=== PATIENT | male | born 1975 | race Caucasian/White ===

== ENCOUNTER 2020-05-23 11:57 | Emergency (ER) | payer MEDICARE, MEDICAID ==
[~2020-05-23] VITALS: Ht 175.3 cm; Wt 126.0 kg
[2020-05-23 12:00] VITALS: BP 177/107
[2020-05-23] MEDS ORDERED: PRED10TA PO (12:48)
[2020-05-23] MEDS ORDERED: predniSONE 20 mg tablet PO ONE (12:50)
== END 2020-05-23 13:01 | disposition home or self-care (01) ==
LOC: ER 11:59
DX: L23.9 Allergic contact dermatitis, unspecified cause (principal); I10 Essential (primary) hypertension
CPT/HCPCS: 99283; J7512

== ENCOUNTER 2024-02-24 10:19 | Outpatient (CLI) | payer MEDICARE, MEDICAID ==
[~2024-02-24 10:19] MED LIST: ASPI-611 PO; ATOR10TA70 PO; HYDR25CA PO; LEVO200T8 PO; MELO-102 PO; METF-438 PO; NORCO PO; PREG150C PO; RISP0.5T74 PO; RIZA-5 SL; TRAZ-256 PO
== END 2024-02-24 23:59 | disposition home or self-care (01) ==
LOC: MRI 10:19
PROVIDERS: ATTEND Anesthesiology Pain Medicine
DX: M43.26 Fusion of spine, lumbar region (principal); N28.1 Cyst of kidney, acquired; M54.16 Radiculopathy, lumbar region; M54.12 Radiculopathy, cervical region; M54.50 Low back pain, unspecified; M54.2 Cervicalgia; E11.9 Type 2 diabetes mellitus without complications; Z98.890 Other specified postprocedural states
CPT/HCPCS: 72148

== ENCOUNTER 2024-12-23 12:56 | Emergency (ER) | payer MEDICARE, MEDICAID ==
[~2024-12-23] VITALS: Ht 175.3 cm; Wt 122.7 kg
[2024-12-23 13:08] VITALS: TEMP 97.8
[2024-12-23 13:35] LABS: BASOPHILS # (AUTO) 0.1 X10'3 (0-0.2); BASOPHILS % (AUTO) 1.3 % (0-1); EOSINOPHILS # (AUTO) 0.1 X10'3 (0-0.9); EOSINOPHILS % (AUTO) 1.9 % (0-6); HEMATOCRIT 51.4 % (42.0-52.0); HEMOGLOBIN 17.8 g/dl (14.0-17.9); LYMPHOCYTES # (AUTO) 2.6 X10'3 (1.1-4.8); LYMPHOCYTES % (AUTO) 36.9 % (21-51); MEAN CORPUSCULAR HEMOGLOBIN 33.8 PG (27.0-31.0); MEAN CORPUSCULAR HGB CONC 34.6 g/dL (33.0-36.5); MEAN CORPUSCULAR VOLUME 97.9 FL (78-98); MEAN PLATELET VOLUME 8.7 FL (7.4-10.4); MONOCYTES # (AUTO) 0.4 X10'3 (0-0.9); MONOCYTES % (AUTO) 6.2 % (2-12); NEUTROPHILS # (AUTO) 3.8 X10'3 (1.8-7.7); NEUTROPHILS % (AUTO) 53.7 % (42-75); PLATELET COUNT 159 X10'3 (140-440); RED BLOOD COUNT 5.25 X10'6 (4.70-6.10); WHITE BLOOD COUNT 7.2 X10'3 (4.5-11.0)
[2024-12-23 13:41] LABS: ALANINE AMINOTRANSFERASE 103 U/L (12-78); ALBUMIN 3.9 G/DL (3.4-5.0); ALKALINE PHOSPHATASE 91 IU/L (46-116); ANION GAP 6 (8-16); ASPARTATE AMINO TRANSFERASE 82 U/L (10-37); BILIRUBIN,TOTAL 0.9 MG/DL (0.1-1.0); BLOOD UREA NITROGEN 7 MG/DL (7-18); BUN/CREATININE RATIO 6.8 (10.0-20.0); CHLORIDE 105 MMOL/L (99-107); CREATININE 1.03 MG/DL (0.60-1.10); GLUCOSE 84 MG/DL (70-104); LIPASE 83 U/L (16-77); POTASSIUM 3.8 MMOL/L (3.5-5.1); SODIUM 139 MMOL/L (135-145); TOTAL CARBON DIOXIDE 28.2 MMOL/L (24-32); TOTAL PROTEIN 7.7 G/DL (6.4-8.2); eCRCL 85 ML/MIN; eGFR 76 ML/MIN
[2024-12-23] MEDS ORDERED: iohexol 300mg/ml 100ml inj. ONE (15:30)
--- NOTE | 2024-12-23 15:30 | Physician Documentation ---
History of Present Illness Chief Complaint: Abdominal Pain Stated Complaint: CHEST/ABD PAIN Time Seen by MD: 14:32 OK to notify your PCP?: Yes Primary Medical Doctor: DAVID ECHEVARRIA Source: patient Mode of Arrival: POV Exam Limitations: no limitations HPI This is a 49-year-old male who comes in complaining of two days of right lower quadrant abdominal pain. The patient was states he has had associated diarrhea and chest pain. He denies cardiac history. States the pain stays in the right lower quadrant without obvious alleviating exacerbating factors. He denies fevers or chills. He has had nausea without vomiting. Medication Reconciliation Allergies: Coded Allergies: semaglutide (Unverified Allergy, Intermediate, N/V, 12/23/24) Uncoded Allergies: DARVOCET (Allergy, Unknown, stomach upset, 05/23/20) Scheduled Aspirin (Aspir 81), 1 TAB PO DAILY, (Reported) Atorvastatin Calcium (Atorvastatin Calcium), PO DAILY, (Reported) Hydroxyzine Pamoate (Vistaril), 1 CAP PO HS, (Reported) Levothyroxine Sodium (Levothyroxine Sodium), 1 TAB PO DAILY, (Reported) Meloxicam (Meloxicam), 1 TAB PO DAILY, (Reported) Metformin HCl (Metformin HCl), 1 TAB PO Q12H, (Reported) Pregabalin (Lyrica), 1 CAP PO DAILY, (Reported) Risperidone (Risperdal), 0.5 MG PO DAILY, (Reported) Trazodone HCl (Trazodone HCl), 2 TAB PO HS, (Reported) Scheduled PRN [[place]], 10 MG PO Q4H PRN for pain, (Reported) Miscellaneous Medications Rizatriptan Benzoate (Maxalt), 10 MG SL, (Reported) Physical Exam Vital Signs: Temperature: 97.8, Source: Temporal, Heart Rate: 77, Respiratory Rate: 18, BP: 153/94, Pulse Oximetry: 96, Weight: 122.730 Pulse Oximetry Reflects: adequate oxygenation General Appearance: alert, WD/WN, moderate distress (The patient appears uncomfortable in his guarding his right lower quadrant of the abdomen.) EENT: PERRL/EOMI Neck: normal inspection, full range of motion, supple, non-tender Respiratory No accessory muscle use or retractions. Lungs are clear to auscultation all treadwell. Cardiovascular No rubs, gallops or murmurs. No peripheral edema, cyanosis or clubbing of the extremities. Gastrointestinal To inspection of the abdomen of the patient was obese but no obvious distention. There is tenderness to palpation of the right lower quadrant of the abdomen as well as McBurney's point. No rigidity rebound or guarding x4 quadrants. Negative psoas, obturator, or Rovsing signs. Negative Whitlock's sign. Skin: normal color, warm/dry Progress Results/Orders Reviewed/noted all lab results: Yes Results/Orders Vital Signs 12/23/24 12/23/24 13:08 14:30 Temp 97.8 Pulse 77 Resp 18 B/P (MAP) 153/94 Pulse Ox 96 Laboratory Tests Test 12/23/24 13:16 White Blood Count 7.2 Red Blood Count 5.25 Hemoglobin 17.8 Hematocrit 51.4 Mean Corpuscular Volume 97.9 Mean Corpuscular Hemoglobin 33.8 H Mean Corpuscular Hemoglobin Concent 34.6 Red Cell Distribution Width 15.0 H Platelet Count 159 Mean Platelet Volume 8.7 Neutrophils (%) (Auto) 53.7 Lymphocytes (%) (Auto) 36.9 Monocytes (%) (Auto) 6.2 Eosinophils (%) (Auto) 1.9 Basophils (%) (Auto) 1.3 H Neutrophils # (Auto) 3.8 Lymphocytes # (Auto) 2.6 Monocytes # (Auto) 0.4 Eosinophils # (Auto) 0.1 Basophils # (Auto) 0.1 CBC Comment Sodium Level 139 Potassium Level 3.8 Chloride Level 105 Carbon Dioxide Level 28.2 Anion Gap 6 L Blood Urea Nitrogen 7 Creatinine 1.03 Estimated GFR/1.73 m2 76 BUN/Creatinine Ratio 6.8 L Glucose Level 84 Calcium Level 9.0 Total Bilirubin 0.9 Aspartate Amino Transf (AST/SGOT) 82 H Alanine Aminotransferase (ALT/SGPT) 103 H Alkaline Phosphatase 91 Total Protein 7.7 Albumin 3.9 Globulin 3.8 Albumin/Globulin Ratio 1.0 L Lipase 83 H Chemistry Comments EKG/XRAY/CT/US/VASC/MRI EKG : Intepreting Monitor?: No Additional Comment 12 lead EKGs and hurt about me: Sinus bradycardia rate of 59. RSR in V1 or V2 right feces D or RVH. Nonspecific T-wave abnormalities anterior leads. Prolonged QT interval. Medical Decision Making Findings The patient was workup showed only gastritis no other concerning findings. At this point I addressed the gastritis but giving the patient a GI cocktail, famotidine 20 mg IV, Bentyl and Lomotil for his diarrhea. The patient does admit to eating spicy [place] food last night prior to this episode of abdominal pain. After receiving all medications he says he feels much better. I am going to discharge the patient home with a prescription for Prilosec, Bentyl and Lomotil. Instructed him to start a clear liquid supplement diet and to follow up with the primary care physician for recheck in the next one or two days. Return to the ER for any worsening or concerning symptoms. Additional Comments Nonspecific abdominal pain. Gastritis. Gastroenteritis. Colitis. Appendicitis. Departure Disposition: HOME / SELF CARE / HOMELESS Impression: Primary Impression: Gastritis and duodenitis Condition: Stable Discharge Instructions: Gastritis, Adult Additional Instructions: Take the medications as prescribed start a clear liquid soft bland diet. Follow up with your primary care physician for recheck in the next one or two days. Return to the ER for any worsening or concerning symptoms Referrals: NO PRIMARY CARE PROVIDER (PCP) Prescriptions Omeprazole (Prilosec) 40 Mg Capsule 1 CAP PO DAILY for 30 Days, #30 CAP Prov: BRUNILDA REY 12/23/24 Diphenoxylate HCl/Atropine (Lomotil 2.5-0.025 mg Tablet) 2.5 Mg-0.025 Mg Tablet 1 TAB PO Q6H for Abdominal cramping diarrhea for 5 Days, #20 TAB 0 Refills Prov: BRUNILDA REY 12/23/24 Dicyclomine Hcl* (Bentyl*) 10 Mg Capsule 1 CAP PO Q6H PRN for ABDOMINAL PAIN, #30 CAP Prov: BRUNILDA REY 12/23/24 Signature Scribe Signature: No Scribe Attestation: The note accurately reflects work and decisions made by me.Brunilda VOGT 12/23/24 19:00 BRUNILDA REY Dec 23, 2024 15:30
[2024-12-23] MEDS: normal saline 1000ml 1,000 ML IV ONE (15:59)
[2024-12-23] MEDS: ondansetron/PF 4mg/2ml inj IV ONE (15:59)
[2024-12-23] MEDS: HYDROmorphone 1 mg/ml syringe IV ONE (16:00)
--- NOTE | 2024-12-23 16:47 | RADIOLOGY REPORT ---
EXAM: CT Abdomen and Pelvis With Intravenous Contrast CLINICAL INDICATION: Right lower quadrant abdominal pain TECHNIQUE: Axial computed tomography images of the abdomen and pelvis with intravenous contrast. Th is CT exam was performed using one or more of the following dose reduction techniques: automated exp osure control, adjustment of the mA and/or kV according to patient size, and/or use of iterative john nstruction technique. CONTRAST: COMPARISON: None FINDINGS: LUNG BASES: Unremarkable. No mass. No consolidation. MEDIASTINUM: Small esophageal hiatal hernia. ABDOMEN: LIVER: Hepatomegaly with fatty infiltration. GALLBLADDER AND BILE DUCTS: Unremarkable. No calcified stones. No ductal dilation. PANCREAS: Unremarkable. No mass. No ductal dilation. SPLEEN: Unremarkable. No splenomegaly. ADRENALS: Unremarkable. No mass. KIDNEYS AND URETERS: Bilateral renal cysts. No hydronephrosis. STOMACH AND BOWEL: Apparent wall thickening of the gastric antrum or proximal duodenum to be second janusz to gastritis or duodenitis. Clinical correlation is recommended. No obstruction. PELVIS: APPENDIX: No findings to suggest acute appendicitis. BLADDER: Unremarkable. No mass. REPRODUCTIVE: Unremarkable as visualized. ABDOMEN and PELVIS: INTRAPERITONEAL SPACE: Unremarkable. No free air. No significant fluid collection. BONES/JOINTS: No acute fracture. No dislocation. SOFT TISSUES: Umbilical hernia containing fat. Bilateral inguinal hernias. VASCULATURE: Unremarkable. No abdominal aortic aneurysm. LYMPH NODES: Unremarkable. No enlarged lymph nodes. OTHER FINDINGS: . . Status post posterior fusion of L5-S1 with disc spacers. Intact hardware. . . . IMPRESSION: 1. Apparent wall thickening of the gastric antrum or proximal duodenum to be secondary to gastritis or duodenitis. Clinical correlation is recommended. 2. Small esophageal hiatal hernia. 3. Hepatomegaly with fatty infiltration. 4. Umbilical hernia containing fat. 5. Bilateral inguinal hernias.
[2024-12-23] MEDS ORDERED: diphenoxylate/atropine tablet (Lomotil) PO ONE (17:30)
--- NOTE | 2024-12-23 17:34 | ELECTROCARDIOGRAPH REPORT ---
[facility] Test Date: 2024-12-23 Test Time: 17:32:09 Pat Name: PILY GUTHRIE Department: EMERGENCY ROOM [id number] Room: Gender: M Client Advisor: BHANU : 1975 Requested By: BRUNILDA REY Order Number: [id number] Reading MD: Dr. Bravo Presley Measurements Intervals Icard Rate: 59 P: 0 [place]: 128 QRS: 50 QRSD: 87 T: 0 QT: 535 QTc: 531 Interpretive Statements Sinus bradycardia RSR' in V1 or V2, right VCD or RVH Nonspecific T abnrm, anterolateral leads Prolonged QT interval Electronically Signed On 12-23-2024 19:01:[address] Bravo Presley Please click the below link to view image of tracing.
[2024-12-23] MEDS: famotidine/PF 10 mg/ml inj IV ONE (18:07)
[2024-12-23] MEDS: dicyclomine 10 MG capsule PO ONE (18:09)
[2024-12-23] MEDS: LIDOcaine 2% Viscous 15ml cup MM ONE (18:10)
[2024-12-23] MEDS: mag hydrox/Alum hydrox/simeth 30ml oral suspension PO ONE (18:10)
[2024-12-23] MEDS: diphenoxylate/atropine tablet (Lomotil) PO ONE (18:33)
[2024-12-23 18:54] LABS: BILIRUBIN,URINE NEGATIVE (Neg); CLARITY,URINE CLEAR (Clear); COLOR,URINE YELLOW (Yellow); GLUCOSE, URINE >=1000 mg/dl (Neg); KETONES,URINE NEGATIVE (Neg); LEUKOCYTE ESTERASE ,URINE NEGATIVE (Neg); NITRITES, URINE NEGATIVE (Neg); OCCULT BLOOD,URINE NEGATIVE (Neg); PROTEIN,URINE NEGATIVE (Neg)
[2024-12-23] MEDS ORDERED: DICY10CA88 PO (18:59)
[2024-12-23 19:00] LABS: UA COLLECTION TYPE CLN CATCH MIDSTREAM
[2024-12-23] MEDS ORDERED: OMEP40CA21 PO (19:00)
[2024-12-23] MEDS ORDERED: DIPH-186 PO (19:00)
[2024-12-23 19:03] LABS: WBC,URINE 0-4 /HPF (0-4)
[2024-12-23 19:04] LABS: BACTERIA,URINE NONE SEEN /HPF (Neg); RBC,URINE NONE SEEN /HPF (0-2)
[2024-12-23 19:05] LABS: AMORPHOUS PHOSPHATES 1+; SQUAMOUS EPITHELIAL CELL,UR FEW /LPF (FEW)
[2024-12-23 19:18] VITALS: BP 118/64; PULSE 60; RESP 16; O2SAT 98
== END 2024-12-23 19:21 | disposition home or self-care (01) ==
LOC: ER 12:56
DX: K29.70 Gastritis, unspecified, without bleeding (principal); K29.80 Duodenitis without bleeding; Z88.8 Allergy status to other drugs, medicaments and biological substances; Z79.82 Long term (current) use of aspirin
CPT/HCPCS: 36415; 74177; 80053; 81001; 83690; 85025; 93005; 96361; 96374; 96375; 99285; J1171; J2405; J3490; J7030; Q9967

== ENCOUNTER 2025-02-13 17:30 | Emergency (ER) | payer MEDICARE, MEDICAID ==
[~2025-02-13] VITALS: Ht 175.3 cm; Wt 129.0 kg
[~2025-02-13 17:30] MED LIST changes: +DIPH-186 PO
[2025-02-13 17:32] VITALS: TEMP 98.5
[2025-02-13 18:27] LABS: HEMATOCRIT 49.2 % (42.0-52.0); MEAN CORPUSCULAR VOLUME 97.1 FL (78-98); RED BLOOD COUNT 5.07 X10'6 (4.70-6.10); WHITE BLOOD COUNT 6.4 X10'3 (4.5-11.0)
[2025-02-13 18:28] LABS: BASOPHILS % (AUTO) 0.5 % (0-1); EOSINOPHILS % (AUTO) 0.8 % (0-6); LYMPHOCYTES % (AUTO) 15.6 % (21-51); MEAN CORPUSCULAR HEMOGLOBIN 33.6 PG (27.0-31.0); MEAN CORPUSCULAR HGB CONC 34.6 g/dL (33.0-36.5); MEAN PLATELET VOLUME 8.6 FL (7.4-10.4); MONOCYTES # (AUTO) 0.3 X10'3 (0-0.9); MONOCYTES % (AUTO) 4.6 % (2-12); NEUTROPHILS % (AUTO) 78.5 % (42-75); PLATELET COUNT 136 X10'3 (140-440); RED CELL DISTRIBUTION WIDTH 15.1 % (11.5-14.5)
[2025-02-13 18:53] LABS: ALANINE AMINOTRANSFERASE 102 U/L (12-78); ALBUMIN 3.6 G/DL (3.4-5.0); ALKALINE PHOSPHATASE 108 IU/L (46-116); ANION GAP 8 (8-16); ASPARTATE AMINO TRANSFERASE 91 U/L (10-37); BILIRUBIN,TOTAL 1.2 MG/DL (0.1-1.0); BLOOD UREA NITROGEN 5 MG/DL (7-18); BUN/CREATININE RATIO 5.2 (10.0-20.0); CALCIUM 8.8 MG/DL (8.5-10.1); CHLORIDE 104 MMOL/L (99-107); CREATININE 0.96 MG/DL (0.60-1.10); GLUCOSE 152 MG/DL (70-104); LIPASE 63 U/L (16-77); POTASSIUM 3.9 MMOL/L (3.5-5.1); SODIUM 139 MMOL/L (135-145); TOTAL CARBON DIOXIDE 27.4 MMOL/L (24-32); TOTAL PROTEIN 7.3 G/DL (6.4-8.2); eCRCL 91 ML/MIN; eGFR 83 ML/MIN
[2025-02-13] MEDS: ondansetron/PF 4mg/2ml inj IV STA (19:54)
[2025-02-13] MEDS: ketorolac trometh 30MG/ML vial 30 MG/ML VIAL IV STA (19:56)
[2025-02-13] MEDS: acetaminophen 1,000mg/100ml IV 100 ML IV STA (19:56)
[2025-02-13] MEDS ORDERED: iohexol 300mg/ml 100ml inj. ONE (20:12)
[2025-02-13 20:16] LABS: BILIRUBIN,URINE NEGATIVE (Neg); CLARITY,URINE CLEAR (Clear); COLOR,URINE YELLOW (Yellow); GLUCOSE, URINE NEGATIVE (Neg); KETONES,URINE NEGATIVE (Neg); LEUKOCYTE ESTERASE ,URINE NEGATIVE (Neg); NITRITES, URINE NEGATIVE (Neg); OCCULT BLOOD,URINE NEGATIVE (Neg); PROTEIN,URINE TRACE mg/dl (Neg)
[2025-02-13 20:20] LABS: UA COLLECTION TYPE NON-SPECIFIED
[2025-02-13 20:21] LABS: WBC,URINE 0-4 /HPF (0-4)
[2025-02-13 20:22] LABS: BACTERIA,URINE NONE SEEN /HPF (Neg); MUCUS STRANDS NONE SEEN /LPF (Neg); RBC,URINE 0-2 /HPF (0-2); SQUAMOUS EPITHELIAL CELL,UR FEW /LPF (FEW)
--- NOTE | 2025-02-13 20:50 | RADIOLOGY REPORT ---
Exam: CT CT ABDOMEN PELVIS W/ IV CONTRAST History: abd pain Comparison Study: CT CT ABDOMEN PELVIS W/ IV CONTRAST on DOS: 12/23/24 TECHNIQUE: A digital cake icer image was obtained. During the uneventful, intravenous administration of c ontrast material, multislice data acquisition was obtained through the abdomen and pelvis. The data s et was subsequently reconstructed into multiplanar reformats. RADIATION DOSE: DLP 36.5 mGy.cm; CTDI vol 2029.8 mGy. Findings: Liver: Hepatomegaly. Spleen: Mild splenomegaly measuring up to 14.2 cm. Pancreas: Unremarkable. Gallbladder: Unremarkable. Adrenals: Unremarkable Kidneys: Bilateral renal cysts and additional too small to characterize lesions. Pelvic Viscera: Unremarkable. Vasculature: Unremarkable. Retroperitoneum: Absent Bowel: No bowel obstruction. The appendix is normal. Moderate fat containing umbilical hernia. Musculoskeletal: Unremarkable. Soft tissues: Postsurgical changes are present at L5-S1. Lungs: The lung bases are clear. Impression: No acute abdominopelvic abnormality identified. Incidental findings as detailed.
[2025-02-13] MEDS: proCHLORperazine 10 MG/2 ml inj IV STA (21:46)
[2025-02-13] MEDS: morphine 4 MG/ML inj SYRINge IV STA (21:46)
[2025-02-13] MEDS: loperamide 2mg capsule PO STA (21:47)
[2025-02-13] MEDS: normal saline 1000ml 1,000 ML IV STA (21:47)
[2025-02-13 22:03] VITALS: BP 108/66; PULSE 87; RESP 18; O2SAT 99
--- NOTE | 2025-02-13 22:29 | Physician Documentation ---
History of Present Illness Chief Complaint: Abdominal Pain Stated Complaint: ABD PAIN Time Seen by MD: 18:55 Primary Medical Doctor: DAVID ECHEVARRIA Mode of Arrival: Ambulatory HPI Patient is seen today with complaints of abdominal pain from his umbilical hernia. Patient also states he has had nausea and vomiting and diarrhea for three days and has not been able to hold anything solid down for two days. Patient states he did have a loose bowel movement just an hour ago. Patient states he feels dehydrated and is requesting morphine for pain. Patient states he normally gets morphine for his pain. Patient denies any chest pain or shortness of breath. He has no other concern or complaint at this time. He denies any fevers or chills. Upon further questioning Patient states he actually has had multiple sick contacts of family members after meeting on father's day about four days ago that multiple family members have had nausea vomiting and diarrhea. Medication Reconciliation Allergies: Coded Allergies: semaglutide (Unverified Allergy, Intermediate, N/V, 12/23/24) Uncoded Allergies: DARVOCET (Allergy, Unknown, stomach upset, 05/23/20) Scheduled Aspirin (Aspir 81), 1 TAB PO DAILY, (Reported) Atorvastatin Calcium (Atorvastatin Calcium), PO DAILY, (Reported) Diphenoxylate HCl/Atropine (Lomotil 2.5-0.025 mg Tablet), 1 TAB PO Q6H Hydroxyzine Pamoate (Vistaril), 1 CAP PO HS, (Reported) Levothyroxine Sodium (Levothyroxine Sodium), 1 TAB PO DAILY, (Reported) Meloxicam (Meloxicam), 1 TAB PO DAILY, (Reported) Metformin HCl (Metformin HCl), 1 TAB PO Q12H, (Reported) Pregabalin (Lyrica), 1 CAP PO DAILY, (Reported) Risperidone (Risperdal), 0.5 MG PO DAILY, (Reported) Trazodone HCl (Trazodone HCl), 2 TAB PO HS, (Reported) Scheduled PRN [[place]], 10 MG PO Q4H PRN for pain, (Reported) Miscellaneous Medications Rizatriptan Benzoate (Maxalt), 10 MG SL, (Reported) Review of Systems Constitutional: Denies: chills, fever, weakness Eyes: Denies: pain, blurred vision ENT: Denies: ear pain, nose pain, throat pain, mouth pain Respiratory: Denies: cough, shortness of breath Cardiovascular: Denies: chest pain, palpitations Gastrointestinal: Denies: abdominal pain, nausea, vomiting Genitourinary: Denies: burning, dysuria Male Genitalia: Denies: penile discharge, testicular pain Neurological: Denies: headache, dizziness Musculoskeletal: Denies: pain, swelling Integumentary: Denies: rash, lesions Allergic/Immunologic: Denies: hives, itching Hematologic/Lymphatic: Denies: no symptoms reported Psychiatric: Denies: depression, anxiety Physical Exam Vital Signs: Temperature: 98.5, Source: Temporal, Heart Rate: 87, Respiratory Rate: 18, BP: 108/66, Pulse Oximetry: 99, Weight: 129.000 Oxygen Flow Rate: 0 Physical Exam General: Awake and Alert, no acute distress. HEENT: Conjunctiva pink, Sclera clear, Mucus Membranes moist. Neck: Supple without masses and tenderness. Resp: Unlabored. Lungs clear to auscultation bilaterally. Heart: Regular Rate and rhythm, normal S1 and S2 without murmur, rub or gallop. Abdomen: Patient on exam does have small umbilical hernia. Patient has significant tenderness to palpation of the abdomen which seems generalized. I do not appreciate any rebound tenderness. Patient does appear to have guarding of the abdomen. Abdomen is soft and nondistended. Normoactive bowel sounds present In all four quadrants. Extremities: No cyanosis,clubbing or edema. Skin: Warm and Dry. Progress Results/Orders Results/Orders Orders - REBEKAH MARSHALL PAC Saline Lock (02/13/25 ) Ondansetron Inj. (Zofran 4mg/2ml Vial) (02/13/25 19:44) Ct Abdomen Pelvis (02/13/25 20:00) Normal Saline 1000ml (Sodium Chloride 10 (02/13/25 21:31) Completed Orders - REBEKAH MARSHALL PAC Ketorolac Trometh 30mg/Ml Vial (Toradol (02/13/25 19:44) Acetaminophen 1,000mg/100ml Iv (Ofirmev (02/13/25 19:44) Ct Abdomen Pelvis (02/13/25 20:00) Procalcitonin (02/13/25 19:49) Lacticsepsis (02/13/25 19:49) Iohexol 300mg/Ml 100ml Inj. (Omnipaque-3 (02/13/25 20:12) Morphine 4mg/Ml Inj. (Morphine Inj.) (02/13/25 21:31) Prochlorperazine Inj (Compazine Inj) (02/13/25 21:31) Loperamide Capsule (Imodium Capsule) (02/13/25 21:33) Medications Received in ER Medications (Trade) Dose Ordered Sig/Dane Route PRN Reason Start Time Stop Time Status Last Admin Dose Admin (Toradol inj. 30mg/ml) 30 mg ONCE STAT IV 02/13/25 19:44 02/13/25 19:51 DC 02/13/25 19:56 30 MG Acetaminophen 100 ml @ 400 mls/hr ONCE STAT IV 02/13/25 19:44 02/13/25 19:58 DC 02/13/25 19:56 400 MLS/HR (Zofran 4mg/2ml vial) 8 mg ONCE STAT IV 02/13/25 19:44 02/13/25 19:51 DC 02/13/25 19:54 8 MG (morphine inj.) 4 mg ONCE STAT IV 02/13/25 21:31 02/13/25 21:33 DC 02/13/25 21:46 4 MG (Compazine inj) 10 mg ONCE STAT IV 02/13/25 21:31 02/13/25 21:34 DC 02/13/25 21:46 10 MG Sodium Chloride 1,000 ml @ 1,000 mls/hr ONCE STAT IV 02/13/25 21:31 02/13/25 22:30 02/13/25 21:47 1,000 MLS/HR (Imodium capsule) 4 mg ONCE STAT PO 02/13/25 21:33 02/13/25 21:34 DC 02/13/25 21:47 4 MG Vital Signs 02/13/25 02/13/25 02/13/25 02/13/25 17:32 18:30 19:56 20:06 Temp 98.5 Pulse 96 84 Resp 16 16 14 18 B/P (MAP) 152/96 136/77 (96) Pulse Ox 96 97 O2 Flow Rate 0 0 02/13/25 02/13/25 02/13/25 20:35 21:46 22:03 Pulse 87 Resp 16 16 18 B/P (MAP) 108/66 (80) Pulse Ox 99 Laboratory Tests Test 02/13/25 17:37 02/13/25 18:10 02/13/25 19:57 02/13/25 20:02 Glucometer 164 H White Blood Count 6.4 Red Blood Count 5.07 Hemoglobin 17.0 Hematocrit 49.2 Mean Corpuscular Volume 97.1 Mean Corpuscular Hemoglobin 33.6 H Mean Corpuscular Hemoglobin Concent 34.6 Red Cell Distribution Width 15.1 H Platelet Count 136 L Mean Platelet Volume 8.6 Neutrophils (%) (Auto) 78.5 H Lymphocytes (%) (Auto) 15.6 L Monocytes (%) (Auto) 4.6 Eosinophils (%) (Auto) 0.8 Basophils (%) (Auto) 0.5 Neutrophils # (Auto) 5.0 Lymphocytes # (Auto) 1.0 L Monocytes # (Auto) 0.3 Eosinophils # (Auto) 0.0 Basophils # (Auto) 0.0 CBC Comment Sodium Level 139 Potassium Level 3.9 Chloride Level 104 Carbon Dioxide Level 27.4 Anion Gap 8 Blood Urea Nitrogen 5 L Creatinine 0.96 Estimated GFR/1.73 m2 83 BUN/Creatinine Ratio 5.2 L Glucose Level 152 H Calcium Level 8.8 Total Bilirubin 1.2 H Aspartate Amino Transf (AST/SGOT) 91 H Alanine Aminotransferase (ALT/SGPT) 102 H Alkaline Phosphatase 108 Total Protein 7.3 Albumin 3.6 Globulin 3.7 Albumin/Globulin Ratio 1.0 L Lipase 63 Procalcitonin 0.06 Chemistry Comments Lactic Acid Level 1.9 Urine Specimen Description Non-specified Urine Color Yellow Urine Clarity Clear Urine pH 8.0 Urine Specific [place] 1.015 Urine Protein Trace Urine Glucose (UA) Negative Urine Ketones Negative Urine Occult Blood Negative Urine Nitrite Negative Urine Bilirubin Negative Urine Urobilinogen 2.0 H Urine Leukocyte Esterase Negative Urine RBC 0-2 Urine WBC 0-4 Urine Squamous Epithelial Cells Few Urine Bacteria None seen Urine Mucus None seen Urine Culture Indicated Not ind Volume Urine Centrifuged 10 ml Urine Comment EKG/XRAY/CT/US/VASC/MRI CT : Impression CAT SCAN Patient: PILY GUTHRIE Medical Record: [id number] [facility] : 1975, Age: 49 Sex: Male Location: ER Patient Status: [facility] ER Service Date/Time: 02/13/251999 Ordering Physician: REBEKAH MARSHALL PAC Exam: CT ABDOMEN PELVIS Exam: CT CT ABDOMEN PELVIS W/ IV CONTRAST History: abd pain Comparison Study: CT CT ABDOMEN PELVIS W/ IV CONTRAST on DOS: 12/23/24 TECHNIQUE: A digital external grinder tool image was obtained. During the uneventful, intravenous administration of contrast material, multislice data acquisition was obtained through the abdomen and pelvis. The data set was subsequently reconstructed into multiplanar reformats. RADIATION DOSE: DLP 36.5 mGy.cm; CTDI vol 2029.8 mGy. Findings: Liver: Hepatomegaly. Spleen: Mild splenomegaly measuring up to 14.2 cm. Pancreas: Unremarkable. Gallbladder: Unremarkable. Adrenals: Unremarkable Kidneys: Bilateral renal cysts and additional too small to characterize lesions. Pelvic Viscera: Unremarkable. Vasculature: Unremarkable. Retroperitoneum: Absent Bowel: No bowel obstruction. The appendix is normal. Moderate fat containing umbilical hernia. Musculoskeletal: Unremarkable. Soft tissues: Postsurgical changes are present at L5-S1. Lungs: The lung bases are clear. Impression: No acute abdominopelvic abnormality identified. Incidental findings as detailed. Electronically Signed by:FILEMON MOON MD Date & Time: 02/13/252046 Dictated by: FILEMON MOON MD Dictation date and time: 02/13/252046 Primary Care Provider: NO PRIMARY CARE PROVIDER cc: REBEKAH MARSHALL PAC ~ Medical Decision Making Findings Patient is seen today with complaints of abdominal pain from his umbilical hernia. Patient also states he has had nausea and vomiting and diarrhea for three days and has not been able to hold anything solid down for two days. Patient states he did have a loose bowel movement just an hour ago. Patient states he feels dehydrated and is requesting morphine for pain. Patient states he normally gets morphine for his pain. Patient denies any chest pain or shortness of breath. He has no other concern or complaint at this time. He denies any fevers or chills. Upon further questioning Patient states he actually has had multiple sick contacts of family members after meeting on father's day about four days ago that multiple family members have had nausea vomiting and diarrhea. CT scan of abdomen showed no acute findings. There was seen a small fat containing umbilical hernia. Patient was treated with 8 mg of Zofran IV, Toradol 30 mg IV, Tylenol a 1000 mg IV, patient reported improvement in nausea but states he still feels nauseous and reported only slight improvement in his pain. Patient was given morphine 4 mg IV and Compazine 10 mg IV as well as loperamide 4 mg by mouth. Patient declined admission today and will follow up with primary care in 1-5 days if no better as needed sooner. Patient was also given L of fluid. Patient will return to ED with any worsening, concerning or changing symptoms. Departure Disposition: LEFT AGAINST MEDICAL ADVICE Impression: Primary Impression: Abdominal pain Qualified Codes: R10.84 - Generalized abdominal pain Additional Impression: Umbilical hernia Qualified Codes: K42.9 - Umbilical hernia without obstruction or gangrene Condition: Improved Discharge Instructions: Abdominal Pain (Nonspecific) Additional Instructions: CT scan of abdomen showed no acute findings. There was seen a small fat containing umbilical hernia. Patient was treated with 8 mg of Zofran IV, Em dol 30 mg IV, Tylenol a 1000 mg IV, patient reported improvement in nausea but states he still feels nauseous and reported only slight improvement in his pain. Patient was given morphine 4 mg IV and Compazine 10 mg IV as well as loperamide 4 mg by mouth. Patient declined admission today and will follow up with primary care in 1-5 days if no better as needed sooner. Patient was also given L of fluid. Patient will return to ED with any worsening, concerning or changing symptoms. Referrals: NO PRIMARY CARE PROVIDER (PCP) Prescriptions Loperamide Hcl (Loperamide) 2 Mg Capsule 2 CAP PO Q6H for loose stool for 2 Days, #16 CAP 0 Refills Prov: REBEKAH MARSHALL PAC 02/13/25 ONDANSETRON ODT 4mg tablet (ONDANSETRON ODT) 4 Mg Tab.rapdis 4 MG PO BID for 7 Days, #14 TAB Prov: REBEKAH MARSHALL PAC 02/13/25 Signature Scribe Signature: No scribe Attestation: No scribREBEKAH Stearns PAC Feb 13, 2025 22:29
[2025-02-13] MEDS ORDERED: ONDA-243 PO (22:59)
[2025-02-13] MEDS ORDERED: LOPE2CAP PO (22:59)
== END 2025-02-13 23:00 | disposition left against medical advice (07) ==
LOC: ER 17:31
DX: K42.9 Umbilical hernia without obstruction or gangrene (principal); Z88.8 Allergy status to other drugs, medicaments and biological substances; Z79.82 Long term (current) use of aspirin
CPT/HCPCS: 36415; 74177; 80053; 81001; 82948; 83605; 83690; 84145; 85025; 96361; 96374; 96375; 99285; J0131; J0780; J1885; J2270; J2405; J7030; Q9967

== ENCOUNTER 2025-08-08 15:55 | Emergency (ER) | payer MEDICARE, MEDICAID ==
[~2025-08-08] VITALS: Ht 175.3 cm; Wt 123.6 kg
[~2025-08-08 15:55] MED LIST changes: +LOPE2CAP PO; +ONDA-243 PO
[2025-08-08 16:52] LABS: MEAN PLATELET VOLUME 8.9 FL (7.4-10.4); RED CELL DISTRIBUTION WIDTH 15.1 % (11.5-14.5)
[2025-08-08 17:07] LABS: CREATININE 1.00 MG/DL (0.60-1.10); TOTAL CARBON DIOXIDE 23.3 MMOL/L (24-32); eCRCL 87 ML/MIN; eGFR 79 ML/MIN
--- NOTE | 2025-08-08 19:50 | Physician Documentation ---
History of Present Illness Chief Complaint: Abdominal Pain w/vomiting Stated Complaint: VOMITING/DIZZINESS/ABD PAIN Time Seen by MD: 19:42 Primary Medical Doctor: DAVID ECHEVARRIA HPI 49-year-old male presents to the ED for complaint of increased abdominal pain and vomiting. Patient is a known diabetic and states he can not hold any food down. Takes glipizide metformin and Jardiance. Says he has a davis take his medications because he throws them up. He has been going on for the last week with increasing severity. States he has a abdominal pain in the upper left quadrant and midepigastric region that does not radiate. Denies any fevers. States he has stopped drinking alcohol four months ago Day of Onset: Aug 08, 2025 Medication Reconciliation Allergies: Coded Allergies: semaglutide (Unverified Allergy, Intermediate, N/V, 08/08/25) Uncoded Allergies: DARVOCET (Allergy, Unknown, stomach upset, 05/23/20) Scheduled Aspirin (Aspir 81), 1 TAB PO DAILY, (Reported) Atorvastatin Calcium (Atorvastatin Calcium), PO DAILY, (Reported) Diphenoxylate HCl/Atropine (Lomotil 2.5-0.025 mg Tablet), 1 TAB PO Q6H Hydroxyzine Pamoate (Vistaril), 1 CAP PO HS, (Reported) Levothyroxine Sodium (Levothyroxine Sodium), 1 TAB PO DAILY, (Reported) Loperamide Hcl (Loperamide), 2 CAP PO Q6H Meloxicam (Meloxicam), 1 TAB PO DAILY, (Reported) Metformin HCl (Metformin HCl), 1 TAB PO Q12H, (Reported) ONDANSETRON ODT 4mg tablet (Ondansetron Odt), 4 MG PO BID Pregabalin (Lyrica), 1 CAP PO DAILY, (Reported) Risperidone (Risperdal), 0.5 MG PO DAILY, (Reported) Trazodone HCl (Trazodone HCl), 2 TAB PO HS, (Reported) Scheduled PRN [[place]], 10 MG PO Q4H PRN for pain, (Reported) Miscellaneous Medications Rizatriptan Benzoate (Maxalt), 10 MG SL, (Reported) Review of Systems All Other Systems at this time: Reviewed and Negative ROS As stated above in the HPI, otherwise all systems are reviewed and negative. Physical Exam Vital Signs: Temperature: 98.9, Source: Temporal, Heart Rate: 89, Respiratory Rate: 16, BP: 123/75, Pulse Oximetry: 95, Weight: 123.640 Oxygen Flow Rate: 0 Physical Exam General: Alert, no apparent distress. Respiratory: Lungs clear, no respiratory distress. Cardiovascular: Regular rate and rhythm, no murmurs. Gastrointestinal: Soft, nontender, nondistended. Bowels sounds present. enlarged abdomen Neurologic: Oriented x4. Psychiatric: Normal mood and affect. Skin: Normal color, warm and dry. No edema, no ecchymosis. Progress Results/Orders Results/Orders Vital Signs 08/08/25 08/08/25 16:18 17:20 Temp 98.9 Pulse 90 89 Resp 16 B/P (MAP) 123/69 123/75 (91) Pulse Ox 95 95 O2 Flow Rate 0 0 Laboratory Tests Test 08/08/25 16:34 White Blood Count 6.6 Red Blood Count 4.94 Hemoglobin 16.5 Hematocrit 48.7 Mean Corpuscular Volume 98.6 H Mean Corpuscular Hemoglobin 33.3 H Mean Corpuscular Hemoglobin Concent 33.8 Red Cell Distribution Width 15.1 H Platelet Count 119 L Mean Platelet Volume 8.9 Neutrophils (%) (Auto) 82.1 H Lymphocytes (%) (Auto) 14.7 L Monocytes (%) (Auto) 2.4 Eosinophils (%) (Auto) 0.4 Basophils (%) (Auto) 0.4 Neutrophils # (Auto) 5.4 Lymphocytes # (Auto) 1.0 L Monocytes # (Auto) 0.2 Eosinophils # (Auto) 0.0 Basophils # (Auto) 0.0 CBC Comment Sodium Level 136 Potassium Level 3.7 Chloride Level 105 Carbon Dioxide Level 23.3 L Anion Gap 8 Blood Urea Nitrogen 8 Creatinine 1.00 Estimated GFR/1.73 m2 79 BUN/Creatinine Ratio 8.0 L Glucose Level 253 H Calcium Level 8.3 L Total Bilirubin 1.3 H Aspartate Amino Transf (AST/SGOT) 72 H Alanine Aminotransferase (ALT/SGPT) 75 Alkaline Phosphatase 96 Total Protein 6.9 Albumin 3.2 L Globulin 3.7 Albumin/Globulin Ratio 0.9 L Lipase 120 H Chemistry Comments Medical Decision Making Additional information obtaine: old records Findings 59-year-old male he is adamant that he quit drinking three months ago. His laboratory values and CT findings indicate that he may have residual pathology from chronic alcohol use. Lipase well below a concerning value. He indicated that he does have some hepatosplenomegaly. At this time I do not see any reason to pursue further emergent evaluation. Symptoms have somewhat subsided. has some residual nausea Differential Dx:Considerations: Cholelithasis, Constipation, Pancreatitis, Urinary tract infection, Urolithiasis Departure Disposition: HOME / SELF CARE / HOMELESS Impression: Primary Impression: Abdominal pain Additional Impression: Gastritis and duodenitis Discharge Instructions: Abdominal Pain (Nonspecific) Referrals: NO PRIMARY CARE PROVIDER (PCP) Prescriptions ONDANSETRON ODT 4mg tablet (ONDANSETRON ODT) 4 Mg Tab.rapdis 1 TAB PO Q6H PRN PRN for nausea/vomiting for 4 Days, #16 TAB 0 Refills Prov: KD DAUGHERTY LIBRARIAN HEAD 08/08/25 Signature Scribe Signature: h Attestation: Scribed for Kd Daugherty Saw Feeder by Kd Daugherty - JOSE . 08/08/25 21:28 KD DAUGHERTY LIBRARIAN HEAD Aug 08, 2025 19:50
[2025-08-08] MEDS ORDERED: iohexol 300mg/ml 100ml inj. ONE (19:56)
[2025-08-08] MEDS: normal saline 1000ML IV soln IVB ONE (20:26)
[2025-08-08] MEDS: ondansetron/PF 4mg/2ml inj IV ONE (20:27)
[2025-08-08] MEDS: morphine 4 MG/ML inj SYRINge IV ONE (20:27)
--- NOTE | 2025-08-08 20:51 | RADIOLOGY REPORT ---
COMPUTERIZED TOMOGRAPHY ABDOMEN AND PELVIS WITH CONTRAST REASON FOR EXAM: Right upper quadrant abdominal pain. COMPARISON: CT CT ABDOMEN PELVIS W/ IV CONTRAST on DOS: 02/13/25, CT CT ABDOMEN PELVIS W/ IV CONTRAST on DOS: 12/23/24 TECHNIQUE: The exam was performed on a Multidetector scanner. Spiral scans were acquired from the diaphragm to the symphysis pubis after administration of IV contrast. 2-D coronal and sagittal reformatted images were provided. Radiation optimization: All CT scans at this facility use at least one of these dose optimization techniques: Automated exposure control mA and/or kV adjustment per patient size (includes targeted exams where dose is matched to clinical indication) or iterative reconstruction. CONTRAST ADMINISTRATION: 100 mL omnipaque 300 intravenously RADIATION DOSE: CTDI: 36 mGy DLP: 2075 mGy-cm FINDINGS: The visualized lung bases are grossly clear. There is no pleural effusion. There is no pericardial effusion. The spleen is borderline enlarged at 13.2 cm in length.. The liver is borderline enlarged at 18.0 cm in length. No focal hepatic lesion is identified. The portal vein is patent. No calcified gallstone is identified. There is no pericholecystic edema. The pancreas is grossly unremarkable. The adrenal glands appear normal. The kidneys enhance symmetrically. There are several simple renal cysts in both kidneys which require no dedicated follow-up. There is no hydronephrosis of either kidney. There is no abdominal aortic aneurysm. There is a retroaortic left renal vein. No pathologic lymphadenopathy is identified by size criteria. There is no pathologic distention of the small bowel. The urinary bladder is within normal limits. The prostate and seminal vesicles are within normal limits. The colonic stool burden is small. The appendix is normal. No free fluid is identified in the abdomen or pelvis. No acute osseous abnormality is identified. There is surgical fusion of L5 and S1 with an intervertebral disc spacer. IMPRESSION: Borderline hepatosplenomegaly. No gallstone identified. No pericholecystic edema. No evidence of bowel obstruction. Normal appendix.
[2025-08-08] MEDS: mag hydrox/Alum hydrox/simeth 30ml oral suspension PO ONE (21:11)
[2025-08-08] MEDS: LIDOcaine 2% Viscous 15ml cup MM ONE (21:12)
[2025-08-08] MEDS ORDERED: ONDA-243 PO (21:28)
[2025-08-08 22:06] LABS: LEUKOCYTE ESTERASE ,URINE NEGATIVE (Neg); NITRITES, URINE NEGATIVE (Neg); OCCULT BLOOD,URINE NEGATIVE (Neg)
[2025-08-08 22:07] VITALS: BP 120/63; PULSE 78; RESP 17; TEMP 98.9; O2SAT 94
[2025-08-08 22:12] LABS: UA COLLECTION TYPE NON-SPECIFIED
== END 2025-08-08 22:15 | disposition home or self-care (01) ==
LOC: ER 15:56
DX: K29.70 Gastritis, unspecified, without bleeding (principal); K29.80 Duodenitis without bleeding; E11.9 Type 2 diabetes mellitus without complications; Z79.82 Long term (current) use of aspirin; Z88.8 Allergy status to other drugs, medicaments and biological substances
CPT/HCPCS: 36415; 74177; 80053; 81003; 83690; 85025; 96361; 96374; 96375; 99285; J2270; J2405; J7030; Q9967

== ENCOUNTER 2025-08-22 17:57 | Emergency (ER) | payer MEDICARE, MEDICAID ==
[~2025-08-22] VITALS: Ht 175.3 cm; Wt 126.6 kg
[2025-08-22 18:01] VITALS: BP 142/72; PULSE 92; O2SAT 97
[2025-08-22] MEDS ORDERED: SULF1TAB49 PO (18:38)
--- NOTE | 2025-08-22 18:39 | Physician Documentation ---
History of Present Illness ~ Chief Complaint: Abscess Stated Complaint: BOIL Time Seen by MD: 18:04 OK to notify your PCP?: Yes Primary Medical Doctor: DAVID ECHEVARRIA Source: patient Mode of Arrival: POV Exam Limitations: no limitations HPI Reports having a abscess under the right armpit for the past 3 days. He reports that he tried doing warm compresses but it did not open up or make it feel better. He reports that he is diabetic but has not had any abscesses in the past. No history of MRSA. Denies any fevers, chills, nausea, vomiting or diarrhea. Tetanus Within 5 Years: No Medication Reconciliation Allergies: Coded Allergies: semaglutide (Unverified Allergy, Intermediate, N/V, 08/08/25) Uncoded Allergies: DARVOCET (Allergy, Unknown, stomach upset, 05/23/20) Scheduled Aspirin (Aspir 81), 1 TAB PO DAILY, (Reported) Atorvastatin Calcium (Atorvastatin Calcium), PO DAILY, (Reported) Diphenoxylate HCl/Atropine (Lomotil 2.5-0.025 mg Tablet), 1 TAB PO Q6H Hydroxyzine Pamoate (Vistaril), 1 CAP PO HS, (Reported) Levothyroxine Sodium (Levothyroxine Sodium), 1 TAB PO DAILY, (Reported) Loperamide Hcl (Loperamide), 2 CAP PO Q6H Meloxicam (Meloxicam), 1 TAB PO DAILY, (Reported) Metformin HCl (Metformin HCl), 1 TAB PO Q12H, (Reported) ONDANSETRON ODT 4mg tablet (Ondansetron Odt), 4 MG PO BID Pregabalin (Lyrica), 1 CAP PO DAILY, (Reported) Risperidone (Risperdal), 0.5 MG PO DAILY, (Reported) Sulfamethoxazole/Trimethoprim (Bactrim Ds Tablet), 1 TAB PO Q12H Trazodone HCl (Trazodone HCl), 2 TAB PO HS, (Reported) Scheduled PRN ONDANSETRON ODT 4mg tablet (Ondansetron Odt), 1 TAB PO Q6H PRN PRN for nausea/vomiting [[place]], 10 MG PO Q4H PRN for pain, (Reported) Miscellaneous Medications Rizatriptan Benzoate (Maxalt), 10 MG SL, (Reported) Review of Systems All Other Systems at this time: Reviewed and Negative Physical Exam Vital Signs: RN Vital Signs have been reviewed: Yes, Temperature: 97.9, Source: Oral, Heart Rate: 92, Respiratory Rate: 16, BP: 142/72, Pulse Oximetry: 97, Weight: 126.600 Oxygen Flow Rate: 0 Pulse Oximetry Reflects: adequate oxygenation Physical Exam General: Alert, no distress. HEENT: No injection, moist mucous membranes. Neck: Full range of motion. Respiratory: No respiratory distress, equal chest rise and fall. Chest: No accessory muscle use. Cardiovascular: Regular rate and rhythm. Gastrointestinal: Nondistended. Extremities: Normal range of motion, no deformity. Neurologic: Oriented x4. Psychiatric: Normal mood and affect. Skin: Approximately 2 cm circular erythematous nodule to right axillary which is firm, no fluctuance of the tissue with some surrounding erythema and induration. Progress Results/Orders Results/Orders Completed Orders - CHAYA DEMPSEY SITE ACQUISITION MANAGER Sulfamethox/Trimetho. Ds Tab (Septra Ds (08/22/25 18:35) Ketorolac Trometh 15mg/Ml Vial (Toradol (08/22/25 18:35) Medications Received in ER Medications (Trade) Dose Ordered Sig/Dane Route PRN Reason Start Time Stop Time Status Last Admin Dose Admin (Septra DS tab) 1 tab ONCE ONCE PO 08/22/25 18:35 08/22/25 18:36 DC 08/22/25 18:47 1 TAB (Toradol injection) 15 mg ONCE ONCE IM 08/22/25 18:35 08/22/25 18:36 DC 08/22/25 18:45 15 MG Vital Signs 08/22/25 08/22/25 08/22/25 18:01 18:42 18:45 Temp 97.9 97.9 Pulse 92 Resp 16 18 B/P (MAP) 142/72 Pulse Ox 97 O2 Flow Rate 0 Medical Decision Making Additional information obtaine: family Findings Presents with small abscess under right axillary. No sepsis or systemic signs of infection. Due to the size of this abscess and the fact that it is firm with no fluctuance, using shared decision-making with the patient, he opted not to do an incision and drainage and just be placed on oral antibiotics. I discussed that since it is not very large and it is very firm, there may not be as much drainage. Patient on Bactrim, 1st dose given here. Differential Dx:Considerations: Include: Bacteremia, Cellulitis, Erysipelas, Gas gangrene, Impetigo, Lymphangitis, Paronychia, Septicemia Departure Disposition: HOME / SELF CARE / HOMELESS Impression: Primary Impression: Abscess Condition: Stable Discharge Instructions: Skin Abscess, [id number]-mu-[id number] Additional Instructions: Take all antibiotics as prescribed. Take Tylenol and/or ibuprofen for pain relief. Return back here for any new or worsening symptoms. Continue with warm compresses. Referrals: NO PRIMARY CARE PROVIDER (PCP) Prescriptions Sulfamethoxazole/Trimethoprim (Bactrim Ds Tablet) 800 Mg-160 Mg Tablet 1 TAB PO Q12H for 10 Days, #20 TAB Prov: CHAYA DEMPSEY 08/22/25 Education Educated: Patient Educated regarding: diagnosis, treatment, prognosis, need for follow up Additional Comment Medical Screen Exam This patient recieved a medical screening examination. After reviewing the individual's medical complaints with presenting symptoms and performing an appropriate physical examination, it was determined that no immediate life- threatening emergency medical condition is present. This individual is also not a women having contractions. Signature Scribe Signature: . Attestation: Scribed for Chaya Dempsey by Chaya Gonzalez NP . 08/22/25 20:44 Parts of this note were created using [employer] voice recognition software program. While efforts were made to correct any mistakes made by this voice recognition software program, nonsensical phrases may remain in this note. In addition, there may be errors and syntax, grammar, content and spelling. CHAYA DEMPSEY Aug 22, 2025 18:39
[2025-08-22 18:42] VITALS: TEMP 97.9
[2025-08-22 18:45] VITALS: RESP 18
[2025-08-22] MEDS: ketorolac trometh 15mg/ml vial 15 MG/ML ML IM ONE (18:45)
[2025-08-22] MEDS: sulfamethoxazole/trimethoprim DS (800/160mg) tablet PO ONE (18:47)
== END 2025-08-22 18:52 | disposition home or self-care (01) ==
LOC: ER 17:58
DX: L02.411 Cutaneous abscess of right axilla (principal); E11.9 Type 2 diabetes mellitus without complications; Z88.8 Allergy status to other drugs, medicaments and biological substances; Z79.82 Long term (current) use of aspirin; Z79.899 Other long term (current) drug therapy
CPT/HCPCS: 96372; 99283; J1885; 99285

== ENCOUNTER 2025-08-25 13:24 | Emergency (ER) | payer MEDICARE, MEDICAID ==
[~2025-08-25] VITALS: Ht 175.3 cm; Wt 123.1 kg
[~2025-08-25 13:24] MED LIST changes: +SULF1TAB49 PO
[2025-08-25 13:32] VITALS: BP 158/83; PULSE 98; O2SAT 96
--- NOTE | 2025-08-25 13:41 | Physician Documentation ---
History of Present Illness ~ Chief Complaint: Abscess Stated Complaint: R ARM PAIN Time Seen by MD: 15:33 Primary Medical Doctor: DAVID ECHEVARRIA HPI This is a 49-year-old male who presents with area of pain and swelling to his right axilla. Patient reports no fevers. Tetanus Within 5 Years: No Medication Reconciliation Allergies: Coded Allergies: semaglutide (Unverified Allergy, Intermediate, N/V, 08/25/25) Uncoded Allergies: DARVOCET (Allergy, Unknown, stomach upset, 05/23/20) Scheduled Aspirin (Aspir 81), 1 TAB PO DAILY, (Reported) Atorvastatin Calcium (Atorvastatin Calcium), PO DAILY, (Reported) Diphenoxylate HCl/Atropine (Lomotil 2.5-0.025 mg Tablet), 1 TAB PO Q6H Hydroxyzine Pamoate (Vistaril), 1 CAP PO HS, (Reported) Levothyroxine Sodium (Levothyroxine Sodium), 1 TAB PO DAILY, (Reported) Loperamide Hcl (Loperamide), 2 CAP PO Q6H Meloxicam (Meloxicam), 1 TAB PO DAILY, (Reported) Metformin HCl (Metformin HCl), 1 TAB PO Q12H, (Reported) ONDANSETRON ODT 4mg tablet (Ondansetron Odt), 4 MG PO BID Pregabalin (Lyrica), 1 CAP PO DAILY, (Reported) Risperidone (Risperdal), 0.5 MG PO DAILY, (Reported) Sulfamethoxazole/Trimethoprim (Bactrim Ds Tablet), 1 TAB PO Q12H Trazodone HCl (Trazodone HCl), 2 TAB PO HS, (Reported) Scheduled PRN ONDANSETRON ODT 4mg tablet (Ondansetron Odt), 1 TAB PO Q6H PRN PRN for nausea/vomiting [[place]], 10 MG PO Q4H PRN for pain, (Reported) Miscellaneous Medications Rizatriptan Benzoate (Maxalt), 10 MG SL, (Reported) Review of Systems ROS As stated above in the HPI, otherwise all systems are reviewed and negative. Physical Exam Vital Signs: Temperature: 97.6, Source: Temporal, Heart Rate: 98, Respiratory Rate: 18, BP: 158/83, Pulse Oximetry: 96, Weight: 123.100 Oxygen Flow Rate: 0 Physical Exam VITALS: Reviewed and as above. GENERAL: Alert, nontoxic appearing, no apparent distress. RESPIRATORY: No increased work of breathing, no respiratory distress, speaking in full clear sentences SKIN: Area of erythema proximally 5 cm x 7 cm to right axilla, small area of fluctuance surrounded by area of induration not extending past area of erythema, no deep tenderness to palpation, no tenderness outside of area of erythema and induration. Procedures I & D Procedure : Site: Right axilla Anesthesia: Lidocaine w/ Epi Volume Anesthetic (mls): 8 Blade Size: 11 Prep/Supplies: dressing applied Incision: mass incised, pus drained, blood drained Tolerated Procedure Well?: yes, no complications Progress Results/Orders Results/Orders Orders - BUSHRA BAUM Cult (Aer) Routine C&S+Gram St (08/25/25 16:04) Laceration/I&D Tray Set Up (08/25/25 16:04) Completed Orders - BUSHRA BAUM Lidocaine 1% W/Epi 1:100,000 (Xylocaine (08/25/25 16:05) Tetanus/Pertuss/Diph Acell/Pf (Boostrix (08/25/25 16:05) Ketorolac Trometh 15mg/Ml Vial (Toradol (08/25/25 16:05) Medications Received in ER Medications (Trade) Dose Ordered Sig/Dane Route PRN Reason Start Time Stop Time Status Last Admin Dose Admin (Boostrix vaccine syringe) 0.5 ml ONCE ONCE IMVAC 08/25/25 16:05 08/25/25 16:06 DC 08/25/25 17:15 0.5 ML (Toradol injection) 15 mg ONCE ONCE IM 08/25/25 16:05 08/25/25 16:14 DC 08/25/25 17:17 15 MG Vital Signs 08/25/25 08/25/25 08/25/25 13:32 17:17 17:50 Temp 97.6 97.6 Pulse 98 Resp 18 16 B/P (MAP) 158/83 Pulse Ox 96 O2 Flow Rate 0 Medical Decision Making Additional information obtaine: old records Findings MSE performed in triage and patient returned to ED lobby by nursing staff to await available ED room This 49-year-old male presented with pain and swelling to right axilla, patient has been seen three days prior placed on oral antibiotics for abscess that at the time did not appear amenable to drainage, on re-evaluation today abscess had an area of fluctuance amenable to drainage. The area was incised and drained with drainage of mix of purulent and bloody material, procedure was successful without complications, patient tolerated procedure well. Patient is otherwise well-appearing, vital signs stable, afebrile, and appropriate for outpatient follow up, currently on antibiotic with appropriate coverage we will continue this antibiotic outpatient until patient finishes entire course in seven days. Patient provided careful return to care precautions home care instructions, and follow up instructions which he verbalized understanding of. Differential Dx:Considerations: Include: Abscess, Bacteremia, Cellulitis, Erysipelas, Hidrademitis suppurativa, Lymphangitis, Osteromyelitis, Septicemia Departure Time of Disposition: 17:32 Disposition: 01 HOME / SELF CARE / HOMELESS Impression: Primary Impression: Abscess Condition: Improved Discharge Instructions: Abscess, Care After Additional Instructions: Continue to take previously prescribed antibiotics. Keep the area clean dry and covered. Please follow up with your primary care provider in the next few days. Please return to the emergency department for any new or worsening concerning symptoms including but not limited to worsening pain and swelling to the area or if you develop a fever over 100.4 that does not lower with ibuprofen or Tylenol. Referrals: NO PRIMARY CARE PROVIDER (PCP) Signature Scribe Signature: No scribe Attestation: The note accurately reflects work and decisions made by me.SHAWNA Almaraz 08/25/25 17:35 BUSHRA BAUM Aug 25, 2025 13:41
[2025-08-25] MEDS: LIDOcaine 1% W/epiNEPHrine 1:100,000 20ml vial IJ ONE (16:21)
[2025-08-25] MEDS: TETanus/Pertussis (Acell)/Diphther VAC/PF (Tdap-Adult) 0.5ml syringe IMVAC ONE (17:15)
[2025-08-25 17:17] VITALS: RESP 16
[2025-08-25] MEDS: ketorolac trometh 15mg/ml vial 15 MG/ML ML IM ONE (17:17)
[2025-08-25 17:50] VITALS: TEMP 97.6
== END 2025-08-25 17:51 | disposition home or self-care (01) ==
LOC: ER 13:25
DX: L02.411 Cutaneous abscess of right axilla (principal); Z88.8 Allergy status to other drugs, medicaments and biological substances; Z79.82 Long term (current) use of aspirin; Z79.899 Other long term (current) drug therapy
CPT/HCPCS: 10060; 87070; 90715; 96372; 99284; A6402; G0008; J1885; Z7610; 90471; A6449